=== PATIENT | female | born 1970 | race Caucasian/White ===

== ENCOUNTER 2019-03-17 06:39 | Day surgery (SDC) | payer OTHER ==
[2019-03-17] MEDS ORDERED: LIDOCAINE 1% 2 ML INJ ID PRN (06:54)
[2019-03-17] MEDS ORDERED: LR 1,000 ML IV ONE (06:54)
[2019-03-17] MEDS ORDERED: MIDAZOLAM 2 MG/2 ML VIAL IVP ONE (08:07)
[2019-03-17] MEDS ORDERED: ONDANSETRON 4 MG/2 ML VIAL IVP PRN (08:09)
[2019-03-17] MEDS ORDERED: ACETAMINOPHEN 500 MG TAB PO PRN (08:09)
[2019-03-17] MEDS ORDERED: ALBUTEROL 3 ML DEYVIAL IH PRN (08:09)
[2019-03-17] MEDS ORDERED: MIDAZOLAM 2 MG/2 ML VIAL ONE (08:09)
[2019-03-17] MEDS ORDERED: HYDROmorphONE/DILAUDID 1 MG/ML INJ IVP PRN (08:09)
[2019-03-17] MEDS ORDERED: LR 500 ML IV PRN (08:09)
[2019-03-17] MEDS ORDERED: NALOXONE HCL 0.4 MG/ML INJ IVP PRN (08:09)
[2019-03-17] MEDS ORDERED: oxyCODONE IR 5 MG TAB PO PRN (08:09)
[2019-03-17] MEDS ORDERED: HYDROCODONE/APAP 5/325 TAB PO PRN (08:09)
[2019-03-17] MEDS ORDERED: NS 500 ML IV PRN (08:09)
[2019-03-17] MEDS ORDERED: PROMETHAZINE HCL 25 MG/ML INJ IVP PRN (08:09)
[2019-03-17] MEDS ORDERED: fentaNYL 100 MCG/2 ML INJ IVP PRN (08:09)
[2019-03-17] MEDS ORDERED: DEXAMETHASONE 4 MG/ML VIAL IVP PRN (08:09)
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
[2019-03-17] MEDS ORDERED: fentaNYL 100 MCG/2 ML INJ ONE (08:18)
[2019-03-17] MEDS ORDERED: PROPOFOL/EMULSION 500 MG/50 ML BOTTLE IV ONE ×2 (08:18→08:41)
--- NOTE | 2019-03-17 08:24 | PDHPUP ---
History & Physical Update H&P update statement: This history and physical update is based on an assessment of the patient which was completed after admission or registration (within 24 hours), but prior to the surgery/procedure. H&P update: H&P reviewed & patient examined, no change in patient's condition since H&P completed
[2019-03-17] MEDS ORDERED: KETOROLAC 30 MG/1 ML SDV ONE (09:11)
[2019-03-17] MEDS ORDERED: ePHEDrine SULFATE 25 MG/5 ML SYR ONE (09:12)
[2019-03-17] MEDS ORDERED: ACETAMINOPHEN 500 MG TAB ONE (09:39)
--- NOTE | 2019-03-17 10:09 | POSTOPPROG ---
Post Op Note Date of Operation: 03/17/19 Surgeon: Shyanne Rogers Anesthesiologist: Giorgio Irwin MD Anesthesia: LMA Pre-op Diagnosis: DUB endometrial fibroids and polyps Post-op Diagnosis: same Indication: same Procedure: H/S myomectomy, polypectomy and Novasure Findings: right sidewall fibroid, 2 polyps Inf/Abcess present in the surg proc area at time of surgery?: No EBL: Minimal
[2019-03-17 10:18] VITALS: BP 112/59
--- NOTE | 2019-03-17 11:38 | POSTANESTH ---
Post Anesthetic Evaluation Cardiovascular Status: Normal, Stable Respiratory Status: Normal, Stable Level of Consciousness/Mental Status: Can Participate in Eval Pain Control: Adequate, Prn Tx Ordered Nausea/Vomiting Control: Adequate, Prn Tx Ordered Complications Possibly Related to Anesthesia: None Noted
--- NOTE | 2019-03-17 11:54 | GOP ---
[f rep st] OPERATIVE REPORT DATE OF OPERATION: SURGEON: Shyanne Rogers MD ANESTHESIA: General LMA. ANESTHESIOLOGIST: Dr. Giorgio Irwin PREOPERATIVE DIAGNOSIS: 1. Dysfunctional uterine bleeding. 2. Submucosal fibroids and polyps. POSTOPERATIVE DIAGNOSIS: 1. Dysfunctional uterine bleeding. 2. Submucosal fibroids and polyps. PROCEDURE PERFORMED: Hysteroscopic myomectomy and polypectomy, NovaSure endometrial ablation. FINDINGS: A right-sided fibroid that pushes to the endometrial cavity about 1-1/2 cm and there were 2 posterior wall polyps, normal tubal ostia, normal cervix. ESTIMATED BLOOD LOSS: Minimal. INDICATIONS: Patient is a 48-year-old who was originally referred to us by [facility] for cervical dysplasia. She commented at that time of her appointment, which was 09/2018, that she was having ve ry heavy irregular bleeding. An ultrasound sonohysterogram done in October 2018, showed a partially embedded submucosal fibroid, plus endometrial polyps and endometrial biopsy was previously done. Pat stephanei desires definitive treatment for this. DESCRIPTION OF PROCEDURE: With informed consent signed, patient was taken to the operating room, mary veronica under general anesthesia without complication, placed in a low dorsal lithotomy position, prepped and draped in the usual sterile fashion. A tenaculum placed on the anterior lip of the cervix. Cervix dilated up to 7 mm. Smaller hysterosco pe placed into the endometrial cavity. Large fibroid noted, so the smallest scope was switched out t o the larger hysteroscope, and this was placed in the uterine cavity and findings noted above. The r eciprocator blade used to resect this right wall endometrial fibroid. There was significant bleeding at the time of this; however, with increased fluid from the hysteroscope and pressure, this was tamp onaded and effective. The fibroid was then resected down to make the , and then the hyste roscope removed. Net fluid deficit was 760 cc, so there is likely some vascular absorption of this. Then, the NovaSure endometrial ablation device was placed in the uterine cavity. Length was 6.5, wid th was 4 test passed and burn time was 35 seconds. Hysteroscope then replaced into the en dometrium and adequate ablation had been done. The patient was then placed in supine position, awake rosa in the operating room, taken recovery room in stable condition, tolerated procedure well. COMPLICATIONS: None. Copy requested to: Grant Shah /[id number]/MODL
== END 2019-03-17 10:37 | disposition home or self-care (01) ==
LOC: FSGY 06:39
PROVIDERS: ATTEND Obstetrics & Gynecology Gynecology
PROC: 0U5B8ZZ Destruction of Endometrium, Via Natural or Artificial Opening Endoscopic (ICD-10-PCS; principal; 2019-03-17 08:15)
PROC: 0UB98ZZ Excision of Uterus, Via Natural or Artificial Opening Endoscopic (ICD-10-PCS; principal; 2019-03-17 08:15)
DX: N93.8 Other specified abnormal uterine and vaginal bleeding (principal); D25.0 Submucous leiomyoma of uterus; N84.0 Polyp of corpus uteri; R01.1 Cardiac murmur, unspecified; J45.909 Unspecified asthma, uncomplicated; F10.21 Alcohol dependence, in remission
CPT/HCPCS: 58561; 58563; C1782; J1885; J2250; J2704; J3010